=== PATIENT | male | born 1985 | race Caucasian/White ===

== ENCOUNTER → 2018-01-08 10:01 | Outpatient (CLI) | payer BC, SELFPAY ==
--- NOTE | 2018-01-08 10:05 | XR_ITS ---
XR KUB CLINICAL INDICATION: ITS.REASON: DYSURIA, ACUTE LT SIDE LOW BACK PAIN ORDERING PHYSICIAN: Rona Benitez PATIENT AGE: 32 years COMPARISON: None FINDINGS: Nonspecific nonobstructive bowel gas pattern. No obvious urolithiasis or acute bony anomalies. IMPRESSION: Unremarkable KUB
== END ==
PROVIDERS: PCP Nurse Practitioner Family; Visit Provider Nurse Practitioner Family
DX: R30.0 Dysuria (principal); M54.5 Low back pain
CPT/HCPCS: 74018

== ENCOUNTER → 2018-01-17 13:30 | Outpatient (CLI) | payer BC, SELFPAY ==
--- NOTE | 2018-01-17 13:38 | MR_ITS ---
MR knee RT wo con HISTORY: Right knee pain and swelling with instability ITS.REASON: INSTABILITY OF RT KNEE ORDERING PHYSICIAN: Rona Benitez PATIENT AGE: 32 years COMPARISON: None TECHNIQUE: Standard multiplanar multiecho sequences are performed without contrast. FINDINGS: The cruciate ligaments, collateral ligaments, patellar tendon, and quadriceps tendon are intact. There is a large horizontal tear involving the posterior horn of the medial meniscus extending from the central to the lateral aspect of the posterior horn of the medial meniscus with some minimal separation of the meniscal fragments by approximately 3 mm. The lateral meniscus is intact. There is a small knee joint effusion. The patellar cartilage is well-preserved. No bone marrow edema apparent. IMPRESSION: 1. Prominent horizontal tear of the posterior horn of the medial meniscus with mild separation of the superior and inferior fragments 2. Small knee joint effusion
== END ==
PROVIDERS: Family Provider Family Medicine; PCP Nurse Practitioner Family; Visit Provider Nurse Practitioner Family
DX: M25.361 Other instability, right knee (principal)
CPT/HCPCS: 73721

== ENCOUNTER → 2018-02-14 09:06 | Outpatient (CLI) | payer BC, SELFPAY ==
--- NOTE | 2018-02-14 09:18 | CT_ITS ---
CT abdomen pelvis w con CLINICAL INDICATION: ITS.REASON: ABDOMINAL WALL HERNIA,ABD PAIN ORDERING PHYSICIAN: Rona Benitez PATIENT AGE: 32 years COMPARISON: None TECHNIQUE: Axial images obtained with sagittal and coronal reformats. All CT scans at the facility use one or more dose reduction, viz: automated exposure control; ma/kV adjustment per patient size (including targeted exams where dose is matched to indication; i.e. head); or iterative reconstruction technique. PROCEDURE: Oral Contrast: Redicat IV Contrast: 75 mL's of Isovue-370. FINDINGS: Lung bases are clear. The liver, spleen, adrenal glands, and pancreas have an unremarkable appearance. No radio opaque gallstones are evident. No renal mass hydronephrosis or obstructing ureteral calculus.. No evidence of appendicitis intestinal obstruction or free air. No evidence of diverticulitis. No abdominal wall hernia or mass evident.. No acute bony anomalies. There are scattered small lymph nodes in the mesentery's nonspecific. IMPRESSION: Negative CT abdomen pelvis. No evidence of abdominal wall hernia or other acute anomalies.
== END ==
PROVIDERS: Family Provider Family Medicine; PCP Nurse Practitioner Family; Visit Provider Nurse Practitioner Family
DX: K43.9 Ventral hernia without obstruction or gangrene (principal); R10.9 Unspecified abdominal pain
CPT/HCPCS: 74177; Q9967

== ENCOUNTER → 2018-05-14 08:12 | Outpatient (CLI) | payer BC, SELFPAY ==
--- NOTE | 2018-05-14 08:15 | US_ITS ---
US liver HISTORY: Right upper quadrant pain ITS.REASON: ELEVATED LIVER ENZYMES ORDERING PHYSICIAN: Martha Rasheed PATIENT AGE: 32 years COMPARISON: None FINDINGS: PANCREAS:Unremarkable. No obvious mass or abnormal fluid collection. No ductal dilatation LIVER:No focal liver lesions demonstrated. Homogeneous echogenicity. No intrahepatic biliary ductal dilatation evident. There is some increased echogenicity of the liver. No biliary ductal dilatation. There is appropriate direction of blood flow within the portal vein which does not appear enlarged. RIGHT KIDNEY:Unremarkable. Normal size and echogenicity. No hydronephrosis GALLBLADDER:No gallstones, gallbladder wall thickening, pericholecystic fluid, or biliary dilatation. IMPRESSION: Increased echogenicity of the liver suggesting fatty liver otherwise negative ultrasound of liver and right upper quadrant
== END ==
PROVIDERS: Family Provider Family Medicine; PCP Nurse Practitioner Family; Visit Provider Nurse Practitioner
DX: R74.8 Abnormal levels of other serum enzymes (principal)
CPT/HCPCS: 76705

== ENCOUNTER 2018-07-01 16:00 | Outpatient (RCR) | payer BC, SELFPAY | END 2018-07-24 11:30 | disposition home or self-care (01) | LOC: PT 16:00 | PROVIDERS: Family Provider Family Medicine; PCP Nurse Practitioner Family; Visit Provider Orthopaedic Surgery | DX: Z96.651 Presence of right artificial knee joint (principal); M22.41 Chondromalacia patellae, right knee | CPT/HCPCS: 97033; 97035; 97110; 97140; 97163; 97164 ==

== ENCOUNTER → 2023-04-24 15:16 | Outpatient (CLI) | payer BC, SELFPAY ==
--- NOTE | 2023-04-24 | XR_ITS ---
FINAL REPORT TECHNIQUE: 5 views CLINICAL HISTORY: numbness and tingling down right arm into fingers FINDINGS: There is no fracture present. There is no malalignment. Mild diffuse degenerative disc disease is present. IMPRESSION: No acute process. Reviewed, Interpreted and Dictated by Teagan Pablo MD Transcribed by Isabell Medina Authenticated and [facility]
--- NOTE | 2023-04-24 | XR_ITS ---
FINAL REPORT CLINICAL HISTORY: ACUTE PAIN, possible pinched nerve, no known injury FINDINGS: Two views show no evidence of acute displaced fracture or dislocation of the visualized bony architecture. The joint spaces appear normal. IMPRESSION: Unremarkable exam. Reviewed, Interpreted and Dictated by Teagan Pablo MD Transcribed by Isabell Medina Authenticated and [facility]
== END ==
PROVIDERS: PCP Family Medicine; Visit Provider Nurse Practitioner Family
DX: M54.2 Cervicalgia (principal); M25.511 Pain in right shoulder
CPT/HCPCS: 72050; 73030

== ENCOUNTER 2023-06-28 09:00 | Outpatient (RCR) | payer BC, SELFPAY | END 2023-07-09 07:40 | disposition home or self-care (01) | LOC: PT 09:00 | PROVIDERS: Visit Provider Nurse Practitioner Family | DX: M54.2 Cervicalgia (principal); M25.511 Pain in right shoulder | CPT/HCPCS: 97010; 97012; 97014; 97110; 97112; 97140; 97163; 97164; G0283 ==

== ENCOUNTER 2023-12-06 08:06 | Emergency (ER) | payer OTHER, SELFPAY ==
[2023-12-06 08:07] VITALS: BP 162/110; PULSE 81; RESP 16; TEMP 36.7; O2SAT 99; BMI 23.1
--- NOTE | 2023-12-06 08:08 | ED_ITS ---
Discharge Plan Disposition Patient Disposition: Home, Self-Care Condition: Good Referrals Follow up/Referrals: Kym Oliver MD [Primary Care Provider] - See instructions Activity Restrictions/Add. Instructions Additional Instructions/Restrictions: Please limit the use of your right hand until the numbing medication wears off, particularly if working with any equipment as you will have decreased sensitivity. Please wear a glove at work until the wound heals up. The sti tches will absorb on their own. Please monitor for any signs or symptoms concerning for infection. Clinical Impressions Clinical Impression: Finger laceration Instructions Patient Instructions: DI for Laceration Repair Discharge ED Provider: Олег Hemphill Adult HPI General Chief complaint: Wound/Laceration Stated complaint: AO 12/06/23 CUT RIGHT INDEX FINGER Time Seen by Provider: 12/06/23 08:08 History of Present Illness HPI narrative: Patient sustained a laceration to his right dominant index finger while working with metal that was not grossly contaminated. This occurred shortly prior to arrival. Bleeding controlled with direct pressure. Denies any distal numbness or tingling. Denies chronic medical issues outside of hypertension. States he is up-to-date on tetanus. No injury elsewhere. There was no concern for foreign body retention per patient, as the piece of metal was large. Related Data Allergies Allergy/AdvReac Type Severity Reaction Status Date / Time No Known Allergies Allergy Verified 07/23/18 09:08 [facility] Disclaimer: The information contained in this section may have been updated after the patient was seen, as this information can be updated by other users. Social History Smoking Status: Never smoker alcohol intake: current current occupational status: employed Travel in the last 8 weeks: None housing: house current occupation: [employer] ROS Obtained: Yes Systems reviewed as appropriate & no additional complaints except as documented As per HPI Physical Exam General General appearance: alert and in no apparent distress Head Head exam: atraumatic and normocephalic Eye Eye exam: Present normal appearance Neck Neck exam: Present normal inspection Chest Chest inspection: Present normal inspection and symmetric chest wall rise Respiratory Respiratory exam: Present normal lung sounds bilaterally; Absent respiratory distress Cardiovascular Cardiovascular exam: Present regular rate and normal rhythm Abdominal Exam Abdominal exam: Present soft Extremities Exam Extremities exam: Present other (Hemostatic laceration to medial aspect of right index finger, lateral to proximal interphalangeal joint. Clinically noncontaminated, no obvious invasion of joint capsule. Range of motion within normal limits, capillary refill within normal limits.) Neurological Exam Neurological exam: Present alert and oriented X3 Psychiatric Psychiatric exam: Present normal affect and normal mood Skin Skin exam: Present warm and dry Medical Decision Making Medical Records Medical records reviewed: Yes I reviewed the patient's medical records. Alin Inquiry Pt receiving controlled substance: No Vital Signs: 12/06/23 08:07 Temperature 98.1 F Temperature Source Oral Pulse Rate [Radial] 81 Respiratory Rate 16 Blood Pressure [Right Arm] 162/110 H Blood Pressure Mean [Right Arm] 127 Blood Pressure Source [Right Arm] Automatic Cuff Blood Pressure Position [Right Arm] Sitting 02 Sat by Pulse Oximetry 99 Oxygen Delivery Method Room Air Medical Decision Narrative: Patient with history and exam per above presenting for evaluation of laceration Diagnoses considered include laceration, foreign body, vascular injury, nerve injury, fracture, tendonous injury, tetanus This patient is up-to-date on tetanus, range of motion within normal limits, no clinical evidence to suggest invasion of the joint capsule, and capillary refill and sensation intact distally, no further workup is indicated at this time. Symptoms at this time are thought to be most consistent with uncomplicated laceration. Laceration repair was performed. At this time, the evidence for any other entities in the differential diagnosis is sufficient to warrant any further testing or ED observation. This was explained to the patient. The patient was advised that persistent or worsening symptoms require further evaluation. He was particularly cautioned regarding any signs or symptoms concerning for infection such as fevers, wound drainage such as pus, swelling of the joint, pain with range of motion, among others. He is deemed stable for discharge at this time. He will keep the wound uncontaminated until he heals. Procedures Laceration Laceration 1: Site: finger Side (If applicable): right Size (cm): 1 Description: linear Depth: simple, single layer Local Anesthetic: lidocaine 1% Amount of anesthesia used (mL): 2 Pre-repair: wound explored and irrigated extensively Skin layer closed with: vicryl Size (cm): 3-0 Number of sutures: 2 Technique: simple, interrupted Critical Care Critical Care Time Critical Care Time: No
[2023-12-06 09:01] VITALS: BP 144/97; PULSE 87; RESP 20; TEMP 37; O2SAT 100
== END 2023-12-06 09:04 | disposition home or self-care (01) ==
PROVIDERS: Emergency Provider Emergency Medicine; PCP Family Medicine
DX: S61.210A Laceration without foreign body of right index finger without damage to nail, initial encounter (principal); W26.8XXA Contact with other sharp object(s), not elsewhere classified, initial encounter
CPT/HCPCS: 12001; 99282